=== PATIENT | female | born 1950 | race African-American/Black ===

== ENCOUNTER 2024-02-18 17:21 | Inpatient (IN) | payer OTHER ==
[~2024-02-18] VITALS: Ht 167.6 cm; Wt 54.4 kg
--- NOTE | 2024-02-18 17:32 | NUR ---
PT BIBA TO BED 3
[2024-02-18 17:45] VITALS: BP 147/74; PULSE 80; RESP 17; TEMP 99.9; O2SAT 96
--- NOTE | 2024-02-18 19:18 | NUR ---
Pt report taken from Lili RODRIGUEZ . Transfer of care at this time.
[2024-02-18 20:10] LABS: BASOPHILS % (AUTO) 0.7 % (0.0-2.0); EOSINOPHILS # (AUTO) 0.2 K/uL (0-0.4); EOSINOPHILS % (AUTO) 3.6 % (0.0-4.0); HEMATOCRIT 26.5 % (36-48); HEMOGLOBIN 7.8 g/dL (12.0-16.0); LYMPHOCYTES # (AUTO) 1.4 K/uL (2.5-16.5); LYMPHOCYTES % (AUTO) 30.5 % (20.5-51.1); MEAN CORPUSCULAR HEMOGLOBIN 22 pg (27-31); MEAN CORPUSCULAR HGB CONC 30 g/dL (33-37); MEAN CORPUSCULAR VOLUME 75.4 fL (80-94); MONOCYTES # (AUTO) 0.5 K/uL (0.8-1.0); MONOCYTES % (AUTO) 10.3 % (1.7-9.3); NEUTROPHILS # (AUTO) 2.5 K/uL (1.8-7.7); NEUTROPHILS % (AUTO) 54.9 % (42.2-75.2); PLATELET COUNT (AUTO) 238 K/uL (140-450); RED BLOOD CELL COUNT(AUTO) 3.51 MIL/uL (4.20-5.40); RED CELL DISTRIBUTION WIDTH 27.8 % (11.6-13.7); WHITE BLOOD COUNT (AUTO) 4.6 K/uL (4.8-10.8)
[2024-02-18 20:16] LABS: CALCIUM 8.3 mg/dL (8.5-10.1); CARBON DIOXIDE 27.8 mmol/L (21-32); CHLORIDE 103 mmol/L (98-107); CREATININE 0.4 mg/dL (0.6-1.3); GLUCOSE 88 mg/dL (74-106); POTASSIUM 3.8 mmol/L (3.5-5.1); SODIUM SERUM 138 mmol/L (136-145); UREA NITROGEN, BLOOD 13 mg/dL (7-18)
--- NOTE | 2024-02-18 20:17 | NUR ---
EYAL FROM FACILITY, FAMILY MEMBER STATES HAS HAD A BLOODY NOSE FOR 1 WEEK, VOMITS BLOOD, LAST EPISODE OF VOITING WAS , DAUGHTER AT BEDSIDE, SAFETY MEASURES IN PLACE ALLERGIES: PENICILLIN, IODINE, CODIENE
[2024-02-18 20:19] LABS: INR 1.04 (0.8-1.2); PARTIAL THROMBOPLASTIN TIME 22.6 secs (22-35.6); PROTHROMBIN TIME 10.9 secs (10.8-13.4)
--- NOTE | 2024-02-18 21:56 | NUR ---
patient is in bed resting, no distress noted at this time, family member not at bedside at this moment. safety measures in place
[2024-02-18] MEDS ORDERED: ONDANSETRON 4 MG/2 ML VIAL IVP PRN (22:15)
[2024-02-18] MEDS ORDERED: LORazepam 1 MG TAB PO PRN (22:15)
--- NOTE | 2024-02-18 22:26 | NUR ---
wound pics taken, see patient chart
[2024-02-18] MEDS ORDERED: ACET500T99 PO ×2 (22:35→22:58)
[2024-02-18] MEDS: NACL 0.9% 1,000 ML IV SCH (22:55)
[2024-02-18] MEDS ORDERED: MAGN400S60 PO (22:58)
[2024-02-18] MEDS ORDERED: ESCI5TAB GT (22:58)
[2024-02-18] MEDS ORDERED: DOCU-299 GT (22:58)
[2024-02-18] MEDS ORDERED: SENN-72 GT (22:58)
[2024-02-18] MEDS ORDERED: DONE5TAB6 GT (22:58)
[2024-02-18] MEDS ORDERED: ASCO500T95 PO (22:58)
[2024-02-18] MEDS ORDERED: CILO100T2 GT (22:58)
[2024-02-18] MEDS ORDERED: BISA-246 RC (22:58)
[2024-02-18] MEDS ORDERED: ALBU0.0912 INH (22:58)
[2024-02-18] MEDS ORDERED: OXYC5TAB4 GT (22:58)
[2024-02-18] MEDS ORDERED: GABA100C GT (22:58)
[2024-02-18] MEDS ORDERED: TRAM50TA3 GT (22:58)
[2024-02-18] MEDS ORDERED: BACL10TA4 PO (22:58)
[2024-02-18] MEDS ORDERED: HYDR-1102 GT (22:58)
[2024-02-18] MEDS ORDERED: FURO-572 GT (22:58)
[2024-02-18] MEDS ORDERED: [UNRECOGNIZED DRUG - OTHER] GT (22:58)
[2024-02-18] MEDS ORDERED: PANT40EC GT (22:58)
--- NOTE | 2024-02-18 22:58 | NUR ---
MED REC COMPLETED.
[2024-02-18 23:41] VITALS: O2SAT 99
--- NOTE | 2024-02-19 00:18 | NUR ---
Patient appears to be resting comfortably in bed. Vital Signs within normal limits. Respirations even and unlabored.
--- NOTE | 2024-02-19 02:34 | NUR ---
Patient appears to be resting comfortably in bed. Vital Signs within normal limits. Respirations even and unlabored.
--- NOTE | 2024-02-19 04:39 | NUR ---
patinet in bed, sleeping, no signs of distress, safety measures in place
--- NOTE | 2024-02-19 06:42 | NUR ---
Patient appears to be resting comfortably in bed. Vital Signs within normal limits. Respirations even and unlabored.
--- NOTE | 2024-02-19 06:53 | NUR ---
500ML EMPTIED FROM RO BAG
[2024-02-19 07:04] LABS: BASOPHILS % (AUTO) 0.5 % (0.0-2.0); EOSINOPHILS # (AUTO) 0.2 K/uL (0-0.4); EOSINOPHILS % (AUTO) 5.5 % (0.0-4.0); HEMATOCRIT 25.4 % (36-48); HEMOGLOBIN 7.9 g/dL (12.0-16.0); LYMPHOCYTES % (AUTO) 25.5 % (20.5-51.1); MEAN CORPUSCULAR HEMOGLOBIN 23 pg (27-31); MEAN CORPUSCULAR HGB CONC 31 g/dL (33-37); MEAN CORPUSCULAR VOLUME 73.8 fL (80-94); MONOCYTES # (AUTO) 0.6 K/uL (0.8-1.0); MONOCYTES % (AUTO) 14.5 % (1.7-9.3); NEUTROPHILS # (AUTO) 2.1 K/uL (1.8-7.7); PLATELET COUNT (AUTO) 221 K/uL (140-450); RED BLOOD CELL COUNT(AUTO) 3.44 MIL/uL (4.20-5.40); RED CELL DISTRIBUTION WIDTH 26.8 % (11.6-13.7); WHITE BLOOD COUNT (AUTO) 3.9 K/uL (4.8-10.8)
[2024-02-19] MEDS ORDERED: traMADol 50 MG TAB GT SCH (07:20)
[2024-02-19] MEDS ORDERED: ALBUTEROL HFA MDI 90 MCG/ACTUATION 8 GM INH PRN (07:20)
--- NOTE | 2024-02-19 07:27 | NUR ---
Pt report given to Karen WALKER. Transfer of care at this time.Pt report given to Charu RODRIGUEZ. Transfer of care at this time.
[2024-02-19 07:49] LABS: ALANINE AMINOTRANSFERASE 22 U/L (12-78); ALBUMIN 2.2 g/dL (3.4-5.0); ALKALINE PHOSPHATASE 172 U/L (50-136); ANION GAP 11.4 (8-16); ASPARTATE AMINOTRANSFERASE 26 U/L (15-37); CALCIUM 8.1 mg/dL (8.5-10.1); CARBON DIOXIDE 27.2 mmol/L (21-32); CHLORIDE 103 mmol/L (98-107); CREATININE 0.3 mg/dL (0.6-1.3); GLUCOSE 84 mg/dL (74-106); POTASSIUM 3.6 mmol/L (3.5-5.1); SODIUM SERUM 138 mmol/L (136-145); TOTAL BILIRUBIN 0.5 mg/dL (0.0-1.0); TOTAL PROTEIN, SERUM 7.1 g/dL (6.4-8.2); UREA NITROGEN, BLOOD 11 mg/dL (7-18)
--- NOTE | 2024-02-19 07:57 | NUR ---
Patient will be admitted to care of [facility]. Admited to med surg. Will go to room 125A. Belongings list completed. Report to Malia.
[2024-02-19 08:30] VITALS: O2SAT 98
[2024-02-19] MEDS ORDERED: hydrALAZINE 10 MG TAB GT SCH (09:00)
[2024-02-19] MEDS ORDERED: MAGNESIUM HYDROXIDE 2400 MG/30 ML UDC PO SCH (09:00)
[2024-02-19] MEDS: MEDS-TO-BEDS MC SCH (09:00)
--- NOTE | 2024-02-19 09:14 | NUR ---
PATIENT HAS BEEN SCREENED AND CATEGORIZED HIGH NUTRITION RISK. PATIENT WILL BE SEEN WITHIN 1-2 DAYS OF ADMISSION. 02/18/24 02/20/[address]
[2024-02-19] MEDS ORDERED: MAGNESIUM HYDROXIDE 2400 MG/30 ML UDC PO PRN (09:15)
[2024-02-19] MEDS: PANTOPRAZOLE 40 MG INJ VIAL IVP SCH (10:12)
[2024-02-19] MEDS: ASCORBIC ACID 500 MG TAB GT SCH (10:12)
[2024-02-19] MEDS: FUROSEMIDE 20 MG TAB GT SCH (10:13)
[2024-02-19] MEDS: GABAPENTIN 100 MG CAP GT SCH (10:13)
[2024-02-19] MEDS: BACLOFEN 10 MG TAB PO SCH (10:13)
[2024-02-19] MEDS: ESCITALOPRAM 20 MG TAB GT SCH (10:13)
[2024-02-19] MEDS: DOCUSATE SODIUM 100 MG GELCAP PO SCH (10:13)
[2024-02-19] MEDS: hydrALAZINE 10 MG TAB GT SCH (10:14)
[2024-02-19 10:57] VITALS: PULSE 70; RESP 18; O2SAT 100
[2024-02-19] MEDS ORDERED: ALBUTEROL 0.083% 2.5 MG/3 ML NEBU INH PRN (11:20)
[2024-02-19 12:00] VITALS: BP 161/86; PULSE 70; RESP 18; TEMP 99.9; O2SAT 100
--- NOTE | 2024-02-19 14:37 | NUR ---
02/19/24 RD INITIAL ASSESSMENT COMPLETED PLEASE REFER TO NUTRITION ASSESSMENT UNDER CARE ACTIVITY FOR ESTIMATED NUTRITIONAL NEEDS. 1. WHEN/IF MEDICALLY APPROPRIATE TO START TF, RECOMMEND GLUCERNA 1.2 AT 45 ML/HR GOAL RATE, FWF 100 ML Q4H (OR PER MD) TOLERATED - START TF AT 2O ML/HR INCREASE BY 2O ML Q4H UNTIL GOAL IS REACHED TOLERATED - PROVIDES 1296 KCAL, 64 GM PROTEIN AND 1469 ML FREE WATER DAILY MEETING 96% ESTIMATED KCAL NEEDS AND 100% ESTIMATED PROTEIN NEEDS 2. MONITOR GI SYMPTOMS, GASTRIC RESIDUALS AND NUTRITION RELATED LAB VALUES 3. RD TO FOLLOW-UP 2-3 DAYS, HIGH RISK BAILEE VAZQUZE, RD
[2024-02-19 16:00] VITALS: BP 150/94; PULSE 80; RESP 18; TEMP 96.9; O2SAT 100
[2024-02-19] MEDS: SODIUM FERRIC GLUCONATE 125 MG in NACL 0.9% 100 ML IV SCH (17:21)
--- NOTE | 2024-02-19 19:03 | NUR ---
GAVE BEDSIDE REPORT TO NIGHT RN FOR CONTINUITY OF CARE, NO SIGNS OF DISTRESS VISIBLE RISE AND FALL CALL LIGHT WITH IN REACH
[2024-02-19 20:00] VITALS: BP 159/90; PULSE 86; RESP 18; RESP 22; TEMP 98.2; O2SAT 94; O2SAT 96
[2024-02-19 21:15] VITALS: O2SAT 94
[2024-02-19] MEDS: DONEPEZIL 10 MG TAB GT SCH (21:46)
[2024-02-19] MEDS: ZOLPIDEM 5 MG TAB PO PRN (21:47)
[2024-02-19] MEDS: hydrALAZINE 25 MG TAB PO SCH (21:47)
[2024-02-19] MEDS: ACETAMINOPHEN 325 MG TAB PO PRN (22:29)
[2024-02-20] VITALS (9 sets, daily range): BP systolic 120–163; BP diastolic 60–91; PULSE 72–83; RESP 16–22; TEMP 96.9–98.7; O2SAT 94–100
[2024-02-20 00:05] LABS: APPEARANCE,URINE CLEAR (CLEAR); BILIRUBIN,URINE NEGATIVE (NEGATIVE); BLOOD, URINE TRACE-I (NEGATIVE); COLOR,URINE YELLOW (YELLOW); LEUKOCYTE ESTERASE ,URINE 2+ (NEGATIVE); NITRITE, URINE NEGATIVE (NEGATIVE); PH,URINE 6.5 (5.0-9.0); PROTEIN,URINE TRACE (NEGATIVE); UGLUCOSE NEGATIVE (NEGATIVE)
[2024-02-20 00:26] LABS: BACTERIA,URINE >30 (MANY) /HPF (None Seen); MUCUS,URINE 2+ /LPF (None Seen); SQUAMOUS EPITHELIAL CELL,UR 0-3 (FEW) /LPF (0-3 (FEW))
[2024-02-20 05:54] LABS: BASOPHILS % (AUTO) 0.4 % (0.0-2.0); EOSINOPHILS # (AUTO) 0.1 K/uL (0-0.4); EOSINOPHILS % (AUTO) 2.9 % (0.0-4.0); HEMATOCRIT 23.6 % (36-48); HEMOGLOBIN 7.2 g/dL (12.0-16.0); LYMPHOCYTES % (AUTO) 22.5 % (20.5-51.1); MEAN CORPUSCULAR HEMOGLOBIN 23 pg (27-31); MEAN CORPUSCULAR HGB CONC 30 g/dL (33-37); MEAN CORPUSCULAR VOLUME 75.9 fL (80-94); MONOCYTES # (AUTO) 0.5 K/uL (0.8-1.0); MONOCYTES % (AUTO) 10.3 % (1.7-9.3); NEUTROPHILS # (AUTO) 2.9 K/uL (1.8-7.7); NEUTROPHILS % (AUTO) 63.9 % (42.2-75.2); PLATELET COUNT (AUTO) 222 K/uL (140-450); RED BLOOD CELL COUNT(AUTO) 3.11 MIL/uL (4.20-5.40); RED CELL DISTRIBUTION WIDTH 27.1 % (11.6-13.7); WHITE BLOOD COUNT (AUTO) 4.6 K/uL (4.8-10.8)
[2024-02-20] MEDS ORDERED: SODIUM FERRIC GLUCONATE 125 MG in NACL 0.9% 100 ML IV SCH (06:30)
[2024-02-20] MEDS ORDERED: LEVOFLOXACIN 250 MG/D5 PREMIX 50 ML IV SCH (07:00)
--- NOTE | 2024-02-20 07:08 | NUR ---
RECEIVED BEDSIDE REPORT FROM NIGHT RN FOR CONTINUITY OF CARE, NO SIGNS OF DISTRESS. VISIBLE RISE AND FALL. CALL LIGHT WITHIN REACH
[2024-02-20] MEDS: LEVOFLOXACIN 250 MG/D5 PREMIX 50 ML IV SCH (09:15)
[2024-02-20] MEDS: bisacodyL 10 MG SUPP RC SCH (09:15)
[2024-02-20] MEDS: DOCUSATE 100 MG/10 ML UDC GT SCH (09:15)
[2024-02-20] MEDS: ESCITALOPRAM 5MG TAB PO SCH (09:17)
[2024-02-21] VITALS (8 sets, daily range): BP systolic 106–132; BP diastolic 63–92; PULSE 72–89; RESP 19–20; TEMP 96–97.2; O2SAT 96–99
[2024-02-21 05:30] LABS: BASOPHILS % (AUTO) 0.4 % (0.0-2.0); EOSINOPHILS # (AUTO) 0.1 K/uL (0-0.4); EOSINOPHILS % (AUTO) 1.5 % (0.0-4.0); HEMATOCRIT 22.8 % (36-48); HEMOGLOBIN 7.2 g/dL (12.0-16.0); LYMPHOCYTES # (AUTO) 0.9 K/uL (2.5-16.5); LYMPHOCYTES % (AUTO) 18.1 % (20.5-51.1); MEAN CORPUSCULAR HEMOGLOBIN 23 pg (27-31); MEAN CORPUSCULAR HGB CONC 32 g/dL (33-37); MEAN CORPUSCULAR VOLUME 73.1 fL (80-94); MONOCYTES # (AUTO) 0.6 K/uL (0.8-1.0); MONOCYTES % (AUTO) 12.3 % (1.7-9.3); NEUTROPHILS # (AUTO) 3.3 K/uL (1.8-7.7); NEUTROPHILS % (AUTO) 67.7 % (42.2-75.2); PLATELET COUNT (AUTO) 206 K/uL (140-450); RED BLOOD CELL COUNT(AUTO) 3.11 MIL/uL (4.20-5.40); RED CELL DISTRIBUTION WIDTH 26.2 % (11.6-13.7); WHITE BLOOD COUNT (AUTO) 4.9 K/uL (4.8-10.8)
--- NOTE | 2024-02-21 07:26 | NUR ---
RECEIVED BEDSIDE REPORT FROM NIGHT RN FOR CONTINUITY OF CARE, NO SIGNS OF DISTRESS VISIBLE RISE AND FALL CALL LIGHT WITHIN REACH
--- NOTE | 2024-02-21 10:53 | NUR ---
DISCHARGE PLANNING: THIS IS A 73 Y/O FEMALE PATIENT FROM [facility] ADMITTED ON 02/18/24 WITH CHIEF COMPLAINTS OF NOSE BLEED. PATIENT WITH HX OF CVA, DYSPHAGIA, - WITH G-TUBE, DEMENTIA, HTN. ABOVE INFORMATION OBTAINED FROM PATIENT'S H & P. PATIENT IS NON VEBAL, UNABLE TO FOLLOW COMMANDS, CONTRACTED. WITH FC,ROUTINE LABS DONE, PT EVAL DONE - NOT APPROPRIATE FOR SKILLED PT WILL BENEFIT WITH RNA SERVICES IN SNF. DISCHARGE PLAN PENDING ON PATIENT'S RESPONSE TO TREATMENT.CM TO FOLLOW UP. Addendum: 02/22/24 at 1032 by OSVALDO BASHIR CM RECEIVED ORDER TO DISCHARGE PATIENT BACK TO SNF. [facility] [phone] SPOKE WITH ЕЛЕНА REGARDING DISCHARGE , PER ЕЛЕНА PATIENT GOING TO ROOM [address] CESAR. TO FOLLOW UP. Addendum: 02/22/24 at 1130 by OSVALDO BASHIR CM CALLED [facility] [phone] SPOKE WITH ABRAN AND WAS ABLE TO ARRANGE TRANSPORTATION [facility] [phone] AUTH #[id number] [facility] AT 11:15 AM BY [facility] [address] [facility] [id number] . GOING TO [facility] [address] [address]. CN MADE AWARE TO GIVE REPORT TO [phone]. CALLED [facility] [phone] SPOKE WITH LULU AND MADE AWARE PT WILL BE P/U HERE AT 11:15 AM AND STATED THEY ALREADY GOT THE REPORT.
--- NOTE | 2024-02-21 14:50 | NUR ---
RECEIVED A POSSIBLE C FOR PATIENT TO RETURN TO SNF. FAXED ALL PAPERWORK TO [facility]. RECEIVED CALL FROM JOSHUA AT [facility] [phone] LOCATED AT [address] [facility] [address]. PATIENT WILL GO TO ROOM 28C UNDER. DR NINA TRANSPORT FOR THE SENSITIVITY FOR URINE CULTURES STILL PENDING ACCORDING TO LAB IT WAS SENT OUT AM OF 02/20/2024 AND MAY TAKE 1-2 DAYS. FAX UPDATED CLINICALS TO [facility]. AND UPDATE [facility] [phone] IF PATIENT WILL LEAVE TOMORROW OR WEEKEND. YOU CAN USE [facility] [phone] TO ARRANGE TRANSPORT. NPI #[id number].
--- NOTE | 2024-02-21 19:03 | NUR ---
GAVE BEDSIDE REPORT TO NIGHT RN FOR CONTINUITY OF CARE, NO SIGNS OF DISTRESS VISIBLE RISE AND FALL CALL LIGHT WITHIN REACH BED IN LOWEST POSITION
--- NOTE | 2024-02-21 19:19 | NUR ---
RECEIVED PATIENT IN BED, NO ACUTE DISTRESS NOTED. RESPIRATIONS EVEN AND UNLABORED. BED IN LOWEST POSITION, BREAKS ON, BED ALARM ACTIVATED.
--- NOTE | 2024-02-21 20:00 | NUR ---
NO RESIDUAL NOTED VIA GTUBE, TOLERATING TUBE FEEDING.
--- NOTE | 2024-02-22 | NUR ---
3ML RESIDUAL FROM GTUBE, INCREASED FEEDING TO 50ML HR FROM 40ML/HR. TOLERATING FEEDING AT THIS TIME.
[2024-02-22 04:00] VITALS: BP 116/55; PULSE 76; RESP 18; TEMP 97.8; O2SAT 100
[2024-02-22 06:27] LABS: HEMOGLOBIN 7.2 g/dL (12.0-16.0); MEAN CORPUSCULAR HEMOGLOBIN 23 pg (27-31); MEAN CORPUSCULAR HGB CONC 31 g/dL (33-37); MEAN CORPUSCULAR VOLUME 72.6 fL (80-94); PLATELET COUNT (AUTO) 231 K/uL (140-450); RED BLOOD CELL COUNT(AUTO) 3.17 MIL/uL (4.20-5.40); RED CELL DISTRIBUTION WIDTH 26.4 % (11.6-13.7); WHITE BLOOD COUNT (AUTO) 4.3 K/uL (4.8-10.8)
[2024-02-22 06:46] LABS: EOSINOPHILS % (MANUAL) 3 % (0-4); LYMPHOCYTES % (MANUAL) 25 % (20-46); MONOCYTES % (MANUAL) 4 % (5-12); PLATELET ESTIMATE ADEQUATE
[2024-02-22 06:47] LABS: ANISOCYTOSIS 1+; HYPOCHROMASIA 1+; OVALOCYTES 1+; POIKILOCYTOSIS 1+; TARGET CELLS 1+
[2024-02-22 07:18] VITALS: O2SAT 99
--- NOTE | 2024-02-22 07:26 | NUR ---
HANDOFF TO ONCOMING NURSE FOR CONTINUITY OF CARE.
--- NOTE | 2024-02-22 07:30 | NUR ---
RECEIVED REPORT FROM NIGHT NURSE, PATIENT ASLEEP, WITH VISIBLE CHEST RISE AND FALL, ON GTUBE FEEDING, WITH G20 SL ON LEFT FA, SAFETY PRECAUTIONS IN PLACE, BED ON LOWEST, CALL LIGHT WITHIN REACH, WILL CONTINUE TO MONITOR.
[2024-02-22 08:00] VITALS: PULSE 82; RESP 18; TEMP 98.1; O2SAT 99
[2024-02-22] MEDS ORDERED: CIPR500T4 PO (10:53)
--- NOTE | 2024-02-22 11:30 | NUR ---
PATIENT AWAKE, NO DISCOMFORT NOTED, DISCHARGE ORDER RECEIVED, CHIEF ACCOUNTANT ARRANGED TRANSPORT, CALLED [facility] TO GIVE REPORT, IV REMOVED, ARM BAND REMOVED, DISCHARGE PAPERS GIVEN, TRANSPORT PICKED UP PATIENT VIA GURNEY.
[2024-02-22 12:00] VITALS: BP 157/77; PULSE 82; RESP 18; TEMP 208.6; O2SAT 99
--- NOTE | 2024-02-22 13:00 | NUR ---
SPOKE WITH PATIENT'S DAUGHTER SHERRY REGARDING DISCHARGE, SHE STATED UNDERSTANDING OF DISCHARGE INSTRUCTIONS
== END 2024-02-22 12:13 | DRG 811 ==
LOC: MED 17:21 → MTU 22:18 → MMU 22:18
PROVIDERS: ADMIT Student in an Organized Health Care Education/Training Program; ATTEND Student in an Organized Health Care Education/Training Program
DX: D62 Acute posthemorrhagic anemia (principal); E43 Unspecified severe protein-calorie malnutrition; J96.10 Chronic respiratory failure, unspecified whether with hypoxia or hypercapnia; N39.0 Urinary tract infection, site not specified; Z68.1 Body mass index [BMI] 19.9 or less, adult; D50.9 Iron deficiency anemia, unspecified; R04.0 Epistaxis; R13.10 Dysphagia, unspecified; I10 Essential (primary) hypertension; Z79.899 Other long term (current) drug therapy; Z88.8 Allergy status to other drugs, medicaments and biological substances; Z86.73 Personal history of transient ischemic attack (TIA), and cerebral infarction without residual deficits; Z88.0 Allergy status to penicillin; F98.8 Other specified behavioral and emotional disorders with onset usually occurring in childhood and adolescence
CPT/HCPCS: 36415; 71045; 80048; 80053; 81001; 83540; 85025; 85610; 85730; 87081; 87086; 87186; 97110; 97163-GP; 99285; J1956; J2470; J2916